=== PATIENT | female | born 1935 | race Caucasian/White ===

== ENCOUNTER 2023-03-30 16:27 | Inpatient (IN) ==
[2023-03-30 17:00] LABS: ABS Eosinophils 0.1 10^3/uL (0.0-0.5); ABS Lymphocytes 1.4 10^3/uL (1.0-4.8); ABS Monocytes 0.7 10^3/uL (0.0-0.9); ABS Neutrophils 4.4 10^3/uL (1.5-7.6); Eosinophil % 2.1 %; Hematocrit 36.9 % (35-45); Hemoglobin 12.7 g/dL (11.5-14.3); Lymphocyte % 21.5 %; Mean Corpuscular Hemoglobin 30.8 pg (27-33); Mean Corpuscular Hgb Conc 34.3 g/dL (31-36); Mean Corpuscular Volume 89.9 fL (80-97); Platelet Count 268 10^3/uL (150-450); Red Blood Count 4.11 10^6/uL (3.63-4.92); Red Cell Distribution Width 14.5 % (12-17); White Blood Count 6.7 10^3/uL (3.8-11.8)
[2023-03-30 17:12] LABS: Activated Partial Thrombo Time 30.1 seconds (26.0-38.0); INR 1.07 (0.83-1.13)
[2023-03-30 17:20] LABS: Albumin 4.1 g/dL (3.2-5.2); Albumin/Globulin Ratio 1.4 (1-3); Calcium 9.2 mg/dL (8.6-10.3); Creatinine, Serum 0.8 mg/dL (0.51-0.95); HDL Cholesterol 38.6 mg/dL; Indirect Bilirubin 0.4 mg/dL (0.3-1.0); Total Bilirubin 0.4 mg/dL (0.2-1.0); Total Protein 7.1 g/dL (6.4-8.9); eGFR CKD-EPI 70.8 (>60)
[2023-03-30 19:43] LABS: Urine Appearance Cloudy; Urine Bilirubin Negative (Negative); Urine Blood 1+ (Negative); Urine Color Yellow; Urine Glucose Negative (Negative); Urine Ketones Negative (Negative); Urine Nitrite Positive (Negative); Urine Protein Negative (Negative); Urine Specific Gravity 1.012 (1.002-1.030); Urine Urobilinogen Negative (Negative)
[2023-03-30 19:52] LABS: Urine Bacteria 1+ (Absent); Urine Red Blood Cell 1+(3-5/hpf) (Absent); Urine Squamous Epithelial Cell Present (Absent); Urine White Blood Cell 3+(>20/hpf) (Absent)
[2023-03-30] MEDS: cefTRIAXone 1 gm/50 mL D5W 1 GM/50 ML BAG IV SCH (22:48)
[2023-03-30] MEDS: Enoxaparin 30 MG/0.3 ML SYR SUBCUT SCH (23:08)
[2023-03-31] MEDS ORDERED: Psyllium PAK PO PRN (09:30)
[2023-03-31] MEDS: Haloperidol 5 mg/ml SDV IV/IM 5 MG/ML AMP IV SLOW PU ONE (10:48)
[2023-03-31 13:48] LABS: TSH Ultra Thyroid Stim Horm 1.05 mcIU/mL (0.34-5.60)
[2023-03-31] MEDS ORDERED: Lorazepam PYXIS KEY PRN (15:01)
[2023-04-01] MEDS: LORazepam 2 mg VIAL 1 ml IV PUSH ONE ×2 (01:42→09:30)
[2023-04-01] MEDS: Aspirin EC 81 mg TAB.EC (enteric coated) PO SCH (09:30)
[2023-04-03] MEDS ORDERED: Enoxaparin 40 MG/0.4 ML SYR SUBCUT SCH (16:00)
[2023-04-05 15:48] LABS: Calcium 9.4 mg/dL (8.6-10.3); Creatinine, Serum 0.82 mg/dL (0.51-0.95); Magnesium 1.9 mg/dL (1.9-2.7); Phosphorus 3.9 mg/dL (2.5-5.0); Potassium 4.2 mmol/L (3.5-5.0); eGFR CKD-EPI 68.8 (>60)
[2023-04-06 06:30] LABS: Calcium 9.6 mg/dL (8.6-10.3); Creatinine, Serum 0.76 mg/dL (0.51-0.95); Potassium 3.8 mmol/L (3.5-5.0); eGFR CKD-EPI 75.3 (>60)
[2023-04-07 13:54] LABS: Calcium 9.2 mg/dL (8.6-10.3); Creatinine, Serum 0.63 mg/dL (0.51-0.95); Potassium 3.4 mmol/L (3.5-5.0); eGFR CKD-EPI 85.3 (>60)
[2023-04-07] MEDS: Potassium Chlor 20 meq TAB.ER PO ONE (18:38)
[2023-04-09 11:02] LABS: Calcium 9.3 mg/dL (8.6-10.3); Creatinine, Serum 0.73 mg/dL (0.51-0.95); Potassium 3.6 mmol/L (3.5-5.0); eGFR CKD-EPI 79.1 (>60)
[2023-04-10] MEDS: Hydrocortisone 0.5% OINT 1 TUBE TOPICAL SCH (14:24)
[2023-04-13 10:53] LABS: Rapid COVID-19 Molecular Undetected (Undetected)
[2023-04-13 13:59] VITALS: BP 153/130
== END 2023-04-13 14:10 | DRG 70 ==
LOC: EDHOLD 16:27 → ED 16:27 → SUATTDRO 18:31 → MEDTELE 20:26 → SUATTDRO 03-31 12:00
PROVIDERS: ADMIT Internal Medicine; ATTEND Student in an Organized Health Care Education/Training Program